=== PATIENT | female | born 1990 | race Hispanic/Latino ===

== ENCOUNTER 2016-11-28 09:01 | Emergency (ER) | payer OTHER ==
[~2016-11-28] VITALS: Ht 152.4 cm; Wt 54.5 kg
[2016-11-28 09:01] VITALS: BP 107/68
[~2016-11-28 09:01] MED LIST: ACET50TA PO; COLA100C5 PO; FERR325T3 PO; FOLGTAB5 PO; IBUP-1114 PO; IRON65TA PO; LEVO25TA5 PO; LOVE1INJ2 SC; PREN1TAB11 PO; [UNRECOGNIZED DRUG - CODE] PO
[2016-11-28] MEDS ORDERED: HYDR1CRE TOP (09:48)
[2017-01-21] MEDS ORDERED: TYLE500T78 PO (09:15)
== END 2016-11-28 09:54 | disposition home or self-care (01) ==
LOC: M ED 09:01
DX: L30.9 Dermatitis, unspecified (principal)

== ENCOUNTER 2016-12-23 07:52 | Emergency (ER) | payer OTHER ==
[~2016-12-23] VITALS: Ht 152.4 cm; Wt 55.0 kg
[~2016-12-23 07:52] MED LIST changes: +HYDR1CRE TOP
[2016-12-23] MEDS ORDERED: NS 1,000 ML IV ONE (08:30)
[2016-12-23] MEDS ORDERED: MORPHINE 2 MG/ML 1ML SYRINGE IV PRN (08:30)
[2016-12-23] MEDS ORDERED: ONDANSETRON 4MG/2ML VIAL (J2405) IV ONE (08:30)
[2016-12-23 08:42] LABS: BASO % 0.4 % (0.0-1.0); EOS # 0.2 K/mm3 (0.0-0.50); EOS % 2.3 % (0.0-3.0); LARGE UNSTAINED CELL # 0.1 K/mm3 (0.0-0.4); LARGE UNSTAINED CELL % 0.7 % (0.0-4.0); LYMPH % 23.2 % (24.0-44.0); MEAN CORPUSCULAR HEMOGLOBIN 29.2 pg (27.0-33.0); MEAN CORPUSCULAR HGB CONC 33.1 g/dl (32.0-36.5); MEAN CORPUSCULAR VOLUME 88.1 fl (80.0-96.0); MONO # 0.3 K/mm3 (0.0-0.8); MONO % 3.7 % (0.0-5.0); NEUTROPHILS # 5.7 K/mm3 (1.8-7.7); NEUTROPHILS % 69.8 % (36.0-66.0); PLATELET COUNT, AUTOMATED 273 k/mm3 (150-450); RED CELL DISTRIBUTION WIDTH 13.6 % (11.5-14.5); WHITE BLOOD COUNT 8.2 K/mm3 (4.0-10.0)
[2016-12-23 09:21] LABS: ALBUMIN 3.5 GM/DL (3.2-5.2); ALBUMIN/GLOBULIN RATIO 0.88 (1.00-1.93); ALKALINE PHOSPHATASE 81 U/L (45-117); ALT/SGPT 24 U/L (12-78); ANION GAP 10 MEQ/L (8-16); AST/SGOT 14 U/L (15-37); BILIRUBIN,DIRECT < 0.1 MG/DL (0.0-0.2); BILIRUBIN,TOTAL 0.2 MG/DL (0.2-1.0); BLOOD UREA NITROGEN 16 MG/DL (7-18); CARBON DIOXIDE LEVEL 24 MEQ/L (21-32); CHLORIDE LEVEL 108 MEQ/L (98-107); CREATININE FOR GFR 0.63 MG/DL (0.55-1.02); GLOMERULAR FILTRATION RATE > 60.0 (>60); GLUCOSE, FASTING 90 MG/DL (70-105); POTASSIUM SERUM 3.9 MEQ/L (3.5-5.1); SODIUM LEVEL 142 MEQ/L (136-145); TOTAL PROTEIN 7.5 GM/DL (6.4-8.2)
--- NOTE | 2016-12-23 09:28 | REP ---
RIGHT UPPER QUADRANT ULTRASOUND: Real-time sonographic evaluation of the right upper quadrant performed. Gallstones are seen in the gallbladder. There is no gallbladder wall thickening or pericholecystic fluid. There is no intrahepatic or extrahepatic biliary dilatation, common bile duct measuring 4 mm in diameter. Liver and pancreas demonstrate homogenous echotexture with no evidence of a mass. Right kidney demonstrates no hydronephrosis or nephrolithiasis with normal size at 9.1 cm in length. IMPRESSION: Gallstones in the gallbladder without evidence of gallbladder wall thickening, pericholecystic fluid or biliary dilatation. Signed by Gigi Al MD 12/23/2016 04:49 P
[2016-12-23] MEDS ORDERED: NORCOTAB PO (09:51)
[2016-12-23] MEDS ORDERED: ZOFR4TAB3 PO (09:51)
[2016-12-23 10:06] VITALS: BP 116/69
[2017-01-21] MEDS ORDERED: TYLE500T78 PO (09:15)
== END 2016-12-23 10:08 | disposition home or self-care (01) ==
LOC: M ED 07:52
DX: K80.70 Calculus of gallbladder and bile duct without cholecystitis without obstruction (principal)
CPT/HCPCS: 76705; 80048; 80076; 81025; 83690; 85025; 96374; 96375; 99283; J2405

== ENCOUNTER 2016-12-25 05:27 | Emergency (ER) | payer OTHER ==
[~2016-12-25] VITALS: Ht 152.4 cm; Wt 52.0 kg
[~2016-12-25 05:27] MED LIST changes: +NORCOTAB PO; +ZOFR4TAB3 PO
[2016-12-25] MEDS ORDERED: NS 1,000 ML IV ONE (06:45)
[2016-12-25] MEDS ORDERED: MORPHINE 2 MG/ML 1ML SYRINGE IV ONE (07:00)
[2016-12-25 07:18] LABS: BASO % 0.4 % (0.0-1.0); EOS # 0.1 K/mm3 (0.0-0.50); EOS % 0.9 % (0.0-3.0); LARGE UNSTAINED CELL # 0.1 K/mm3 (0.0-0.4); LYMPH # 2.3 K/mm3 (1.5-6.5); LYMPH % 21.8 % (24.0-44.0); MEAN CORPUSCULAR HEMOGLOBIN 29.2 pg (27.0-33.0); MEAN CORPUSCULAR HGB CONC 33.8 g/dl (32.0-36.5); MEAN CORPUSCULAR VOLUME 86.5 fl (80.0-96.0); MONO # 0.3 K/mm3 (0.0-0.8); MONO % 3.4 % (0.0-5.0); NEUTROPHILS # 7.2 K/mm3 (1.8-7.7); NEUTROPHILS % 72.4 % (36.0-66.0); PLATELET COUNT, AUTOMATED 286 k/mm3 (150-450); RED CELL DISTRIBUTION WIDTH 13.2 % (11.5-14.5); WHITE BLOOD COUNT 9.9 K/mm3 (4.0-10.0)
[2016-12-25 07:47] LABS: ALBUMIN 3.8 GM/DL (3.2-5.2); ALBUMIN/GLOBULIN RATIO 0.83 (1.00-1.93); ALKALINE PHOSPHATASE 87 U/L (45-117); ALT/SGPT 32 U/L (12-78); ANION GAP 9 MEQ/L (8-16); AST/SGOT 18 U/L (15-37); BILIRUBIN,DIRECT < 0.1 MG/DL (0.0-0.2); BILIRUBIN,TOTAL 0.2 MG/DL (0.2-1.0); BLOOD UREA NITROGEN 8 MG/DL (7-18); CALCIUM LEVEL 9.4 MG/DL (8.5-10.1); CARBON DIOXIDE LEVEL 27 MEQ/L (21-32); CHLORIDE LEVEL 106 MEQ/L (98-107); CREATININE FOR GFR 0.65 MG/DL (0.55-1.02); GLOMERULAR FILTRATION RATE > 60.0 (>60); GLUCOSE, FASTING 88 MG/DL (70-105); POTASSIUM SERUM 3.4 MEQ/L (3.5-5.1); SODIUM LEVEL 142 MEQ/L (136-145); TOTAL PROTEIN 8.4 GM/DL (6.4-8.2)
[2016-12-25 07:48] LABS: CONTROL LINE HCG INT CTR LINE PRESENT
[2016-12-25] MEDS ORDERED: ZOFR4TAB3 PO (10:02)
[2016-12-25] MEDS ORDERED: BACT800T5 PO (10:02)
[2016-12-25] MEDS ORDERED: NORCOTAB PO (10:02)
[2016-12-25 10:18] VITALS: BP 106/66
[2017-01-21] MEDS ORDERED: TYLE500T78 PO (09:15)
== END 2016-12-25 10:21 | disposition home or self-care (01) ==
LOC: M ED 05:27
DX: N39.0 Urinary tract infection, site not specified (principal); K80.70 Calculus of gallbladder and bile duct without cholecystitis without obstruction

== ENCOUNTER 2017-01-23 08:25 | Day surgery (SDC) | payer OTHER ==
[~2017-01-23] VITALS: Ht 152.4 cm; Wt 52.2 kg
[~2017-01-23 08:25] MED LIST changes: +BACT800T5 PO; +TYLE500T78 PO
[2017-01-23] MEDS ORDERED: LR 1,000 ML IV ONE (08:30)
[2017-01-23 09:37] LABS: CONTROL LINE UCG INT CTR LINE PRESENT
[2017-01-23] MEDS ORDERED: BUPIVACAINE/EPIN 0.25% 30 ML VIAL As Ordered ONE (09:43)
[2017-01-23] MEDS ORDERED: SCOPOLAMINE 1.5 MG TRANSDERMAL As Ordered ONE (09:51)
[2017-01-23] MEDS ORDERED: fentaNYL 100 MCG/2 ML INJECTION (J3010) As Ordered ONE (10:05)
[2017-01-23] MEDS ORDERED: HYDROmorphone HCL 2 MG/ML 1ML VIAL (J1170) As Ordered ONE (10:05)
[2017-01-23] MEDS ORDERED: MIDAZOLAM INJ 2 MG/2 ML VIAL (J2250) As Ordered ONE (10:05)
[2017-01-23] MEDS ORDERED: METOCLOPRAMIDE INJ 10MG/2ML VIAL (J2765) As Ordered ONE (10:06)
[2017-01-23] MEDS ORDERED: dexameTHASONE 4 MG/ML 1ML VIAL (J1100) As Ordered ONE (10:06)
[2017-01-23] MEDS ORDERED: ePHEDrine SULFATE 25 MG/5 ML(5MG/ML) SYRINGE As Ordered ONE (10:08)
[2017-01-23] MEDS ORDERED: PROPOFOL 200 MG/20 ML VIAL As Ordered ONE ×3 (10:17→11:05)
[2017-01-23] MEDS ORDERED: ROCURONIUM BROMIDE 50 MG/5 ML VIAL/SYRINGE As Ordered ONE (10:18)
[2017-01-23] MEDS ORDERED: GLYCOPYRROLATE INJ 0.2 MG/ML 2 ML VIAL As Ordered ONE (10:39)
[2017-01-23] MEDS ORDERED: NEOSTIGMINE 10 MG/10 ML VIAL (J2710) As Ordered ONE (10:39)
[2017-01-23] MEDS ORDERED: ONDANSETRON 4MG/2ML VIAL (J2405) As Ordered ONE ×2 (10:47→12:09)
[2017-01-23] MEDS ORDERED: KETOROLAC 60 MG/2 ML VIAL (J1885) As Ordered ONE (10:57)
[2017-01-23] MEDS ORDERED: SCOPOLAMINE 1.5 MG TRANSDERMAL TOP ONE (11:00)
[2017-01-23] MEDS ORDERED: METOCLOPRAMIDE INJ 10MG/2ML VIAL (J2765) IV PRN (12:15)
[2017-01-23] MEDS ORDERED: HYDROmorphone HCL 1 MG/ML SYRINGE (J1170) IV PRN (12:15)
[2017-01-23] MEDS ORDERED: LR 1,000 ML IV SCH ×2 (12:15→12:30)
[2017-01-23] MEDS ORDERED: fentaNYL 100 MCG/2 ML INJECTION (J3010) IV PRN (12:15)
[2017-01-23] MEDS ORDERED: PERCOCET 5MG/325MG TAB PO PRN (12:15)
[2017-01-23] MEDS ORDERED: ONDANSETRON 4MG/2ML VIAL (J2405) IV PRN ×2 (12:15→12:30)
[2017-01-23] MEDS ORDERED: NORCO, ANEXSIA 5/325MG TABLET (HYDROcodone/ACETAMINOPHEN) PO PRN (12:30)
[2017-01-23] MEDS ORDERED: MORPHINE 2 MG/ML 1ML SYRINGE IV PRN (12:30)
[2017-01-23 15:30] VITALS: BP 120/76
[2017-01-23] MEDS ORDERED: KETOROLAC 30 MG/ML VIAL (J1885) IV SCH (20:00)
--- NOTE | 2017-02-06 17:06 | RO ---
DATE OF PROCEDURE: 01/23/2017 PREOPERATIVE DIAGNOSIS: Symptomatic gallstones. POSTOPERATIVE DIAGNOSES: Symptomatic gallstones and umbilical hernia. OPERATIVE PROCEDURE: Laparoscopic cholecystectomy and umbilical hernia repair. SURGEON: Justin Baeza MD ANESTHESIA: General endotracheal anesthesia. ESTIMATED BLOOD LOSS: Minimal. FLUIDS: Crystalloid. BRIEF PROCEDURE SUMMARY: Patient was brought to the operating room, was given general anesthesia. After adequate anesthesia was established, the patient was prepped and draped in the usual sterile fashion. Next, a supraumbilical incision was made with a skin knife. Blunt dissection was carried down to fascia. What was present was there was an umbilical hernia present and, thus, this needed be dissected off of surrounding tissue. It was mobilized at the level of the fascia and eventually, circumferentially, it was surrounded and transected at the level of the fascia using cautery. The extra fatty tissue was removed. This was mostly preperitoneal fat, and then a 10 mm trocar was placed into that site and then the abdomen insufflated to 15 mm of pressure. A dilating 5 mm trocar was placed at the epigastric area, and two lateral 5 mm trocars were placed under direct visualization. The gallbladder was grasped, retracted superiorly, and numerous adhesions of omentum to the gallbladder were taken down with hook cautery. This was able to be retracted superiorly, and then the neck of the gallbladder was cleared of peritoneum using hook cautery laterally, then anteriorly, and then medially. Cystic artery was well seen, surrounded, and then mobilized enough so that a good window behind the cystic artery was appreciated as well as the neck of the gallbladder, and then further dissection laterally as well as posterior to the neck of the gallbladder was performed, eventually seeing the critical view of safety; and the cystic artery was clipped proximally and distally, transected, and then further dissection of the cystic duct was performed. When this was adequate in size and showed the junction from the cystic duct to the gallbladder neck, the cystic duct was clipped proximally and distally and transected and then the gallbladder was removed from the gallbladder bed using electrocautery. It was placed in an Endo Catch bag, brought out through the umbilicus. Given the stones present, the umbilical hernia site was opened slightly larger to allow the gallbladder to be removed. Some of the stones or crushed to get the gallbladder out through this area, but eventually the gallbladder was removed. Right upper quadrant was copiously irrigated until clear, and then the trocars were removed under direct visualization. #0 Vicryl was used to close the fascia at the umbilicus. The umbilical hernia site did take two figure-of-8 #0 Ethibond sutures and closed quite nicely transversely, and the skin was brought together with #4-0 Vicryl on all incisions. Steri-Strips and dry sterile dressing was applied. The patient was awakened from anesthesia, extubated, brought to the recovery room awake, alert, and hemodynamically stable. Sponge and needle counts were correct times two.
== END 2017-01-23 16:05 | disposition home or self-care (01) ==
LOC: M SDC 08:25
PROVIDERS: ATTEND Surgery
DX: K80.10 Calculus of gallbladder with chronic cholecystitis without obstruction (principal); K42.9 Umbilical hernia without obstruction or gangrene; I73.9 Peripheral vascular disease, unspecified; G43.909 Migraine, unspecified, not intractable, without status migrainosus; Z91.040 Latex allergy status; Z87.440 Personal history of urinary (tract) infections
CPT/HCPCS: 47562; 49652; 84703; 88304; J0690; J1100; J1170; J1885; J2250; J2405; J2710; J2765; J3010

== ENCOUNTER → 2017-04-09 | Outpatient (CLI) | payer OTHER ==
--- NOTE | 2017-04-09 17:02 | REP ---
BILATERAL BREAST ULTRASOUND: Bilateral breast ultrasound performed for reported lumpiness in the upper outer quadrants of each breast for the past 6 months. Scanning in these regions demonstrate dense fibroglandular tissue which is heterogeneous. There is no discrete cystic or solid nodule bilaterally. IMPRESSION: ACR 2 benign. In the areas of lumpiness in the upper outer quadrant of each breast there is dense fibroglandular tissue without sonographic evidence of a cystic or solid mass. Signed by Gigi Al MD 04/10/2017 04:54 P
== END ==
LOC: M RAD 15:00
PROVIDERS: ATTEND Family Medicine
DX: N64.9 Disorder of breast, unspecified (principal)

== ENCOUNTER 2017-04-24 16:00 | Emergency (ER) | payer OTHER ==
[2017-04-24] MEDS: NS 1,000 ML IV (17:15)
[2017-04-24 17:20] LABS: MEAN CORPUSCULAR HEMOGLOBIN 28.9 pg (27.0-33.0); MEAN CORPUSCULAR HGB CONC 33.7 g/dl (32.0-36.5); MEAN CORPUSCULAR VOLUME 85.9 fl (80.0-96.0); PLATELET COUNT, AUTOMATED 313 10^3/uL (150-450); RED CELL DISTRIBUTION WIDTH 13.2 % (11.5-14.5); WHITE BLOOD COUNT 6.5 10^3/uL (4.0-10.0)
[2017-04-24 17:25] LABS: ADD MANUAL DIFFER YES; ATYP LYMPH POS FLAG; DIFF SLIDE NUMBER 232; POSITIVE MORPH POS FLAG
[2017-04-24 17:45] LABS: ALBUMIN 3.9 GM/DL (3.2-5.2); ALBUMIN/GLOBULIN RATIO 0.83 (1.00-1.93); ALKALINE PHOSPHATASE 100 U/L (45-117); ALT/SGPT 40 U/L (12-78); ANION GAP 5 MEQ/L (8-16); AST/SGOT 26 U/L (7-37); BILIRUBIN,TOTAL 0.3 MG/DL (0.2-1.0); BLOOD UREA NITROGEN 9 MG/DL (7-18); CALCIUM LEVEL 8.8 MG/DL (8.5-10.1); CARBON DIOXIDE LEVEL 29 MEQ/L (21-32); CHLORIDE LEVEL 105 MEQ/L (98-107); CREATININE FOR GFR 0.73 MG/DL (0.55-1.02); GLOMERULAR FILTRATION RATE > 60.0 (>60); GLUCOSE, FASTING 87 MG/DL (70-105); MAGNESIUM LEVEL 2.4 MG/DL (1.8-2.4); POTASSIUM SERUM 4.4 MEQ/L (3.5-5.1); SODIUM LEVEL 139 MEQ/L (136-145); TOTAL PROTEIN 8.6 GM/DL (6.4-8.2)
[2017-04-24 18:05] LABS: BANDS 3 % (< 11); EOSINOPHILS 1 % (0-5)
== END 2017-04-24 18:45 | disposition home or self-care (01) ==
LOC: M ED 16:00
DX: R11.2 Nausea with vomiting, unspecified (principal); R19.7 Diarrhea, unspecified; G43.909 Migraine, unspecified, not intractable, without status migrainosus; D64.9 Anemia, unspecified; Z91.040 Latex allergy status
CPT/HCPCS: 83735